=== PATIENT | female | born 1935 | race Caucasian/White ===

== ENCOUNTER 2022-11-20 11:36 | Outpatient (CLI) | payer MEDICARE, BC | END 2022-11-20 11:37 | disposition home or self-care (01) | LOC: CSHRAD 11:36 | PROVIDERS: ATTEND Chiropractor | DX: M54.50 Low back pain, unspecified (principal); M46.1 Sacroiliitis, not elsewhere classified; M51.36 Other intervertebral disc degeneration, lumbar region | CPT/HCPCS: 72100 ==